=== PATIENT | female | born 2005 | race Hispanic/Latino ===

== ENCOUNTER 2024-04-24 21:35 | Emergency (ER) | payer SELFPAY ==
[2024-04-25] MEDS ORDERED: Ketorolac Tromethamine 30 MG (1 mL) VIAL ONE (00:22)
== END 2024-04-25 00:28 | disposition home or self-care (01) ==
LOC: ERS 21:35
DX: S16.1XXA Strain of muscle, fascia and tendon at neck level, initial encounter (principal); V89.2XXA Person injured in unspecified motor-vehicle accident, traffic, initial encounter
CPT/HCPCS: 70450; 72125; 96372; J1885